=== PATIENT | female | born 1955 | race Caucasian/White ===

== ENCOUNTER 2017-04-14 14:38 | Emergency (ER) | payer OTHER ==
[~2017-04-14] VITALS: Ht 162.6 cm; Wt 75.0 kg
[~2017-04-14 14:38] MED LIST: CELE200; CYCL-36 PO; ESTR1TAB PO; GABA300C3 PO; LORT5TAB PO; LORTA5 PO; MEDR5TAB20 PO; NAPR500 PO; PRED5PAK PO; PROM25SU8 PO; SERT100; TRAM50TA PO
[2017-04-14 14:42] VITALS: BP 197/99; PULSE 76; RESP 16; TEMP 98.1; O2SAT 98
[2017-04-14 14:59] VITALS: BP 128/85
[2017-04-14] MEDS ORDERED: VITA150T PO (15:17)
[2017-04-14] MEDS ORDERED: SERT-132 PO (15:17)
[2017-04-14] MEDS ORDERED: NORE1TAB72 PO (15:17)
[2017-04-14] MEDS ORDERED: MELO15TA20 PO (15:17)
[2017-04-14] MEDS ORDERED: GABA300C5 PO (15:17)
[2017-04-14] MEDS ORDERED: FISH1200 PO (15:17)
[2017-04-14] MEDS ORDERED: ZINC220T PO (15:17)
[2017-04-14] MEDS ORDERED: CYCL10TA PO (16:29)
--- NOTE | 2017-04-14 16:29 | PD ---
HPI Chief Complaint: Pain: Acute or Chronic Time Seen by Provider: 16:08 Travel History International Travel<30 days: No Contact w/Intl Traveler<30days: No Traveled to known affect area: No History of Present Illness HPI 61-year-old right-hand dominant female presents to the ED for evaluation of approximately 10 day history of left shoulder pain. Rated 5/10, constant, worsened by attempted to raise the arm overhead or heavy lifting. No alleviating factors reported. Onset after she was cleaning and emptying coffee pots at work. Patient states that she has pain with overhead extension or reaching to far forward with the arm. She denies numbness, tingling, weakness of the extremity. She's never injured it before. She has been treating at home with ice and her normal dose of meloxicam. PFSH Past Medical History Hx Anticoagulant Therapy: No Arthritis: Yes Depression: Yes Diabetes: No ?: Not Menopausal: Yes Social History Alcohol Use: Yes (OCC) Tobacco Use: Yes (03/24 PPD) Substance Use: No Allergies-Medications (Allergen,Severity, Reaction): Coded Allergies: Sulfa (Sulfonamide Antibiotics) (Unverified Allergy, Mild, 04/14/17) Reported Meds & Prescriptions Reported Meds & Active Scripts Active Flexeril (Cyclobenzaprine HCl) 10 Mg Tab 10 Mg PO TID Reported Super B Complex (Vitamin B Complex Vit C No.4) 150 Mg Tablet 1 Tab PO DAILY Zinc Sulfate 220 Mg Tab 220 Mg PO DAILY Fish Oil 1200 mg ([place]-3 Fatty Acids) 360 Mg-1,200 Mg Cap 1,200 Mg PO DAILY Jevantique Lo 0.5/2.5 (Norethindrone-Ethinyl Estradiol) 0.5-2.5 Mg-Mcg Tab 1 Tab PO DAILY Sertraline (Sertraline HCl) 50 Mg Tab 50 Mg PO DAILY Gabapentin 300 Mg Cap 300 Mg PO BID Meloxicam 15 Mg Tab 15 Mg PO DAILY Review of Systems Except as stated in HPI: all other systems reviewed are Neg Physical Exam Narrative GENERAL: Well-nourished, well-developed white female in no acute distress. SKIN: Focused skin assessment warm/dry. HEAD: Normocephalic. EYES: No scleral icterus. No injection or drainage. NECK: Supple, trachea midline. No JVD or lymphadenopathy. CARDIOVASCULAR: Regular rate and rhythm without murmurs, gallops, or rubs. RESPIRATORY: Breath sounds equal bilaterally. No accessory muscle use. GASTROINTESTINAL: Abdomen soft, non-tender, nondistended. MUSCULOSKELETAL: No cyanosis, or edema. Focused left upper extremity exam: 2+ radial pulse. Pain elicited with external rotation. Pain elicited with resisted abduction. Drop arm test negative. No tenderness to palpation of the anterior aspect of the shoulder. Palpable spasm of the left SCM. BACK: Nontender without obvious deformity. No CVA tenderness. Data Data Last Documented VS Vital Signs Date Time Temp Pulse Resp B/P (MAP) Pulse Ox O2 Delivery O2 Flow Rate FiO2 04/14/17 14:59 128/85 (99) 04/14/17 14:42 98.1 76 16 98 Orders Orders Ketorolac Inj (Toradol Inj) (04/14/17 16:30) MDM Medical Decision Making Medical Screen Exam Complete: Yes Emergency Medical Condition: Yes Differential Diagnosis Muscle spasm versus muscular skeletal pain versus rotator cuff tendinitis versus rotator cuff injury versus other Narrative Course 61-year-old right-hand dominant female presents to the ED for evaluation of approximately 10 day history of left shoulder pain. Onset after she was cleaning and emptying coffee pots at work. Patient states that she has pain with overhead extension or reaching to far forward with the arm. She denies numbness, tingling, weakness of the extremity. Vitals reviewed. Physical exam reveals tenderness to palpation anterior aspect of the shoulder, pain elicited with external rotation and pain elicited with resisted abduction. Drop arm test negative. I suspect this is a rotator cuff tendinitis. Patient was administered IM Toradol. She is prescribed a short course of muscle relaxants and encouraged to continue her daily meloxicam. She is instructed to rest, ice , elevate the extremity, avoid heavy lifting or overuse, follow up with the orthopedist. She indicated understanding of instructions and is agreeable to the care plan. She is stable and discharged home. Diagnosis Primary Impression: Injury of left rotator cuff Qualified Codes: S46.002A - Unspecified injury of muscle(s) and tendon(s) of the rotator cuff of left shoulder, initial encounter Referrals: Cali Arrieta MD Patient Instructions: General Instructions, Rotator Cuff Injury (ED) Additional Instructions: Rest, ice, elevate the extremity. Apply ice no longer than 10-15 minutes per hour a few times a day. Continue meloxicam as previously prescribed. Take Flexeril as needed for muscle spasm. Do not drive while taking this medication as it may cause drowsiness. Return to normal, gentle activity as tolerated. NO heavy lifting, excessive overuse until evaluated by the orthopedist. Follow up with orthopedist or your primary care provider as discussed. Return to the ED for any urgent or emergent medical condition. Med/Other Pt SpecificInfo: Prescription(s) given Scripts Cyclobenzaprine (Flexeril) 10 Mg Tab 10 MG PO TID for Muscle Spasm, #15 TAB 0 Refills Prov: Keith Russell MD 04/14/17 Disposition: 01 DISCHARGE HOME Condition: Stable Gloria Hardy Apr 14, 2017 16:29
[2017-04-14] MEDS ORDERED: KETOROLAC TROMETHAMINE 60 MG/2 ML (IM) VIAL IM ONE (16:30)
== END 2017-04-14 16:43 | disposition home or self-care (01) ==
LOC: PHEFT 14:38
DX: S46.002A Unspecified injury of muscle(s) and tendon(s) of the rotator cuff of left shoulder, initial encounter (principal); F32.9 Major depressive disorder, single episode, unspecified; M19.90 Unspecified osteoarthritis, unspecified site; F17.200 Nicotine dependence, unspecified, uncomplicated; X58.XXXA Exposure to other specified factors, initial encounter; Y93.G1 Activity, food preparation and clean up; Y92.9 Unspecified place or not applicable; Y99.0 Civilian activity done for income or pay; Z88.2 Allergy status to sulfonamides
CPT/HCPCS: 96372; 99283; J1885